=== PATIENT | female | born 1975 | race Caucasian/White ===

== ENCOUNTER 2017-06-21 13:40 | Emergency (ER) | payer BC ==
[~2017-06-21] VITALS: Ht 160 cm; Wt 126.1 kg
[~2017-06-21 13:40] MED LIST: OLME20 PO; TRI-LO-ESTARYL1 EACH PO
== END 2017-06-21 18:01 | disposition home or self-care (01) ==
LOC: ER 13:40
DX: I10 Essential (primary) hypertension (principal); Z79.899 Other long term (current) drug therapy
CPT/HCPCS: 71046; 84484; 93005; 93010

== ENCOUNTER → 2018-06-26 | Outpatient (CLI) | payer BC | END | disposition home or self-care (01) | LOC: LAB SHORT 12:36 → PLD 12:36 | DX: N92.1 Excessive and frequent menstruation with irregular cycle (principal) | CPT/HCPCS: 88305 ==

== ENCOUNTER 2018-08-14 06:00 | Inpatient (IN) | payer BC ==
[~2018-08-14] VITALS: Ht 160 cm; Wt 127.5 kg
[2018-08-14] MEDS ORDERED: iron (06:37)
--- NOTE | 2018-08-14 06:45 | NUR ---
PT ADMITTED TO [facility]. AGREES WITH PLANNED SURGERY. LUNG SOUNDS CLEAR.
--- NOTE | 2018-08-14 10:50 | NUR ---
PT ARRIVED TO ROOM 233 FROM PACU PT IS S/P WENDY PT REPORTS ABD PAIN 2/10 PT HAS AQUACEL CDI TRANVERSE KIESHA PAD WITH SCANT VAG DRAINAGE PRUETT CATH DRAINING YELLOW URINE KPAD PLACED TO ABD PT GIVEN ICE CHIPS AND CL PT DID STATE SHE HAS SOME NAUSEA ZOFRAN ALREADY GIVEN WILL CALL DR MONTAGUE
--- NOTE | 2018-08-14 14:34 | NUR ---
pt stated pain is still about 2 no nausea at this time gave pt drink to trial will order fl for dinner
--- NOTE | 2018-08-14 16:00 | NUR ---
pt wanting to try something more then cl yogurt given
--- NOTE | 2018-08-14 18:01 | NUR ---
pt eating dinner
--- NOTE | 2018-08-14 18:30 | NUR ---
pt assisted to edge of the bed to dangle slight dizziness the able to stand pt had some bleeding replaced to pad pt wanting to stand next to the bed
[2018-08-15 04:59] LABS: BASOPHILS ABSOLUTE AUTO 0.02 K/mm3 (0.00-0.23); BASOPHILS PERCENT AUTO 0 % (0-2); EOSINOPHILS PERCENT AUTO 0 % (0-6); Hematocrit 31.3 % (33.0-51.0); Hemoglobin 9.5 g/dL (11.5-16.0); IMMATURE GRAN ABSOLUTE AUTO 0.09 K/mm3 (0.00-0.10); IMMATURE GRAN PERCENT AUTO 1 % (0-1); LYMPHOCYTES ABSOLUTE AUTO 1.58 K/mm3 (0.84-5.20); LYMPHOCYTES PERCENT AUTO 11 % (21-46); MONOCYTES ABSOLUTE AUTO 1.22 K/mm3 (0.16-1.47); MONOCYTES PERCENT AUTO 8 % (4-13); Mean Corpuscular HGB 22.5 pg (26.0-34.0); Mean Corpuscular HGB Conc 30.4 g/dL (31.5-36.5); Mean Corpuscular Volume 74 fL (80-100); Mean Platelet Volume 10.8 fL (9.1-12.4); NEUTROPHILS PERCENT AUTO 81 % (41-73); Platelet Count 305 K/mm3 (150-400); RDW Coefficient Variation 18.1 % (11.7-14.2); RDW Standard Deviation 42.9 fL (35.1-46.3); Red Blood Cell Count 4.23 M/mm3 (3.80-5.20); White Blood Cell Count 15.01 K/mm3 (4.00-11.30)
--- NOTE | 2018-08-15 06:52 | NUR ---
SHIFT SUMMARY RESTED WITH EASE, PAIN WELL MANAGED WITH SHEAR GRINDER OPERATOR HELPER. HAS URINATED IN BATHROOM X1 SINCE REMOVAL. TRANSVERSE AQUACELL IN PLACE AND IS C/D/I. MODERATE BLEEDING NOTED ON KIESHA PAD. DENIES FURTHER NEEDS AT THIS TIME. SAFETY MEASUERS IN PLACE. WILL GIVE HAND OFF TO ONCOMING SHIFT USING SBAR.
[2018-08-15] MEDS ORDERED: Percocet 5-3251 EACH PO (10:07)
[2018-08-15] MEDS ORDERED: IBUP800 PO (10:07)
--- NOTE | 2018-08-15 15:23 | NUR ---
DISCHARGE PT EDUCATED ON AND RECEIVED PRINTED DC INSTRUCTIONS. PT VERB AN UNDERSTANDNG. HARD RX FOR PERCOCET AND MOTRIN GIVEN TO PT. IV DC'D. PT ABLE TO VOID SPONTANEOUSLY AND PAIN MANAGED WITH ORAL PERCOCET. YASMANI REG DIET AND PASSING GAS. PT WAITING FOR RIDE HOME. ALL BELONGINGS GATHERED BY PT.
--- NOTE | 2018-08-16 08:17 | NUR ---
08/16/18 0817 Jocelyn Aguayo VERIFICATIONS: EDIT CHART.
== END 2018-08-15 15:54 | disposition home or self-care (01) | DRG 743 ==
LOC: SURS 06:00 → PRE IP 07:30 → SURS 10:45
PROVIDERS: ADMIT Obstetrics & Gynecology
PROC: 0UT50ZZ Resection of Right Fallopian Tube, Open Approach (ICD-10-PCS; 2018-08-14)
PROC: 0UT90ZL Resection of Uterus, Supracervical, Open Approach (ICD-10-PCS; principal; 2018-08-14 07:30)
PROC: 0UT00ZZ Resection of Right Ovary, Open Approach (ICD-10-PCS; 2018-08-14 07:30)
DX: N92.1 Excessive and frequent menstruation with irregular cycle (principal); N83.201 Unspecified ovarian cyst, right side; D64.9 Anemia, unspecified
CPT/HCPCS: 36415; 85025; 86850; 86900; 86901; 88307; J0690; J1100; J1885; J2250; J2405; J2550; J2704; J2710; J3010; J7120

== ENCOUNTER 2018-08-20 14:25 | Inpatient (IN) | payer BC ==
[~2018-08-20] VITALS: Ht 162.6 cm; Wt 128.2 kg
[~2018-08-20 14:25] MED LIST changes: +IBUP800 PO; +Percocet 5-3251 EACH PO; +iron
--- NOTE | 2018-08-20 15:04 | NUR ---
PT ARRIVED TO UNIT AT APROX 1445. PT POD 6 WENDY. INCISION SITE INFLAMMED, PURULENT DRAINAGE PRESENT ON ABD PAD, DRESSING CHANGED AT THIS TIME.
[2018-08-20 15:59] LABS: BASOPHILS ABSOLUTE AUTO 0.03 K/mm3 (0.00-0.23); BASOPHILS PERCENT AUTO 0 % (0-2); EOSINOPHILS ABSOLUTE AUTO 0.38 K/mm3 (0.00-0.68); EOSINOPHILS PERCENT AUTO 4 % (0-6); Hematocrit 33.7 % (33.0-51.0); Hemoglobin 10.3 g/dL (11.5-16.0); IMMATURE GRAN PERCENT AUTO 1 % (0-1); LYMPHOCYTES ABSOLUTE AUTO 2.01 K/mm3 (0.84-5.20); LYMPHOCYTES PERCENT AUTO 21 % (21-46); MONOCYTES ABSOLUTE AUTO 0.67 K/mm3 (0.16-1.47); MONOCYTES PERCENT AUTO 7 % (4-13); Mean Corpuscular HGB 23.1 pg (26.0-34.0); Mean Corpuscular HGB Conc 30.6 g/dL (31.5-36.5); Mean Corpuscular Volume 76 fL (80-100); Mean Platelet Volume 10.4 fL (9.1-12.4); NEUTROPHILS ABSOLUTE AUTO 6.56 K/mm3 (1.96-9.15); NEUTROPHILS PERCENT AUTO 67 % (41-73); Platelet Count 342 K/mm3 (150-400); RDW Coefficient Variation 17.8 % (11.7-14.2); RDW Standard Deviation 47.8 fL (35.1-46.3); Red Blood Cell Count 4.45 M/mm3 (3.80-5.20); White Blood Cell Count 9.75 K/mm3 (4.00-11.30)
[2018-08-20 16:11] LABS: Alanine Aminotransfer (ALT/SGP 20 U/L (12-78); Albumin, Blood 3.4 g/dL (3.4-5.0); Albumin/Globulin Ratio 0.8 (0.8-1.8); Alk Phos 81 U/L (50-136); Anion Gap 4 mmol/L (6-16); Aspartate Aminotrans (AST/SGOT 17 U/L (12-37); Bilirubin, Total 0.5 mg/dL (0.1-1.0); Blood Urea Nitrogen 6 mg/dL (8-24); Bun/Creatinine Ratio 8.2 (12.0-20.0); CO2, Blood 29 mmol/L (21-32); Calcium, Blood 8.9 mg/dL (8.5-10.1); Chloride, Blood 107 mmol/L (98-108); Creatinine, Blood 0.73 mg/dL (0.40-1.00); Glomerular Filtration Rate >60 (60-); Glucose, Blood 98 mg/dL (70-99); Potassium, Blood 3.8 mmol/L (3.5-5.5); Sodium, Blood 140 mmol/L (136-145); Total Protein, Blood 7.4 g/dL (6.4-8.2)
--- NOTE | 2018-08-21 07:44 | NUR ---
SUMMARY: ADMIT DAY 2 POST-OP INFECTION BY DR. ECHOLS. VSS, AFEBRILE, ROOM AIR. VOIDING, TOLERATING REG DIET. PT REPORTS SMALL AREA ON RIGHT OF INCISION OPENED DURING BRP WITH MODERATE AMOUNT OF PURULENT DRAINAGE. ABD APPLIED TO INCISION CONTINUE IV ANTIBIOTICS AND AWAIT CULTURE RESULTS.
[2018-08-21 10:17] LABS: Vancomycin, Trough 21.1 ug/mL (5.0-10.0)
--- NOTE | 2018-08-21 18:41 | NUR ---
SUMMARY NO ACUTE CHANGES T/O SHIFT. PLACED PREVENA TO LOWER TRANSVERSE ABDOMINAL INCISION/WOUND. MEDICATED THIS EVENING PER ORDERS W/IBUPROFEN FOR 3/10 ABDOMINAL PAIN. PT INDEPENDENT IN ROOM. PLEASANT AND COOPERATIVE. CALL LIGHT IN REACH.
[2018-08-22 01:25] LABS: Vancomycin, Trough 14.1 ug/mL (5.0-10.0)
--- NOTE | 2018-08-22 07:14 | NUR ---
POSITIVE BLOOD CX: NOTIFIED BY LAB OF POSITIVE BLOOD CX-GRAM POSITIVE COCCI. CURRENT ABX ORDERS REV, DISCUSSED W/PHARMACIST. CALL PLACED THIS AM TO ANS SERVICE, DR VILLALOBOS NOTIFIED, LABS AND CURRENT ABX ORDERS REVIEWED, NO NEW ORDERS REC.
--- NOTE | 2018-08-22 07:32 | NUR ---
PT HAD NO ACUTE CHANGES T/O NIGHT; VSS. DRESSING CDI, W/SM AMT SS DRNG. NO CHANGE TO REDNESS OR RASH THIS AM. PAIN MGD W/IBUPROFEN W/REP RELIEF. BENADRYL GIVEN X1 FOR ITCHING. POSITIVE BLOOD CX REC THIS AM, OTIFIED, NO NEW ORDERS. PT YASMANI REG PO, NO C/O N/V, IS VOIDING W/O DIFIUCLTY. PT AMB INDEP IN HALLS, IS USING CALL LIGHT FOR ASSISTANCE, REP GIVEN TO DAY RN.
[2018-08-22 09:44] LABS: BASOPHILS ABSOLUTE AUTO 0.03 K/mm3 (0.00-0.23); BASOPHILS PERCENT AUTO 0 % (0-2); EOSINOPHILS PERCENT AUTO 3 % (0-6); Hematocrit 32.3 % (33.0-51.0); IMMATURE GRAN ABSOLUTE AUTO 0.12 K/mm3 (0.00-0.10); IMMATURE GRAN PERCENT AUTO 1 % (0-1); LYMPHOCYTES ABSOLUTE AUTO 1.63 K/mm3 (0.84-5.20); LYMPHOCYTES PERCENT AUTO 18 % (21-46); MONOCYTES ABSOLUTE AUTO 0.71 K/mm3 (0.16-1.47); MONOCYTES PERCENT AUTO 8 % (4-13); Mean Corpuscular HGB 23.3 pg (26.0-34.0); Mean Corpuscular Volume 75 fL (80-100); Mean Platelet Volume 10.4 fL (9.1-12.4); NEUTROPHILS ABSOLUTE AUTO 6.06 K/mm3 (1.96-9.15); NEUTROPHILS PERCENT AUTO 69 % (41-73); Platelet Count 339 K/mm3 (150-400); RDW Coefficient Variation 17.8 % (11.7-14.2); RDW Standard Deviation 47.7 fL (35.1-46.3); White Blood Cell Count 8.85 K/mm3 (4.00-11.30)
[2018-08-22 10:02] LABS: Anion Gap 5 mmol/L (6-16); Blood Urea Nitrogen 8 mg/dL (8-24); Bun/Creatinine Ratio 10.4 (12.0-20.0); CO2, Blood 26 mmol/L (21-32); Calcium, Blood 8.9 mg/dL (8.5-10.1); Chloride, Blood 109 mmol/L (98-108); Creatinine, Blood 0.77 mg/dL (0.40-1.00); Glomerular Filtration Rate >60 (60-); Glucose, Blood 108 mg/dL (70-99); Potassium, Blood 3.8 mmol/L (3.5-5.5); Sodium, Blood 140 mmol/L (136-145)
--- NOTE | 2018-08-22 16:36 | NUR ---
PT IV INFILTRATED WHILE INFUSING VANCO. DR. ECHOLS NOTIFIED. IV DC'D AND ARM ELEVATED. ROE, REGISTERED VASCULAR TECHNOLOGIST (RVT) TO START A POWERGLIDE.
--- NOTE | 2018-08-22 18:48 | NUR ---
SUMMARY: PT ADMITTED FOR POST OP INFECTION. NO ACUTE CHANGE TODAY. VSS, AFIBRILE. NO REDNESS OR DRAINAGE NOTED AT SURGICAL SITE. WOUND VAC REMOVED AND MEDIPORE DRESSING PLACED. PT TOLERATED WELL. MEDICATED FOR PAIN X1, OTHERWISE PT DENIED NEED FOR PAIN MEDS. REPEAT LABS DRAWN TODAY. PLAN IS CONTINUE IV ABX AND MONITOR BLOOD CULTURES. PT INDEPENDENT IN ROOM, NO SAFETY CONCERNS AT THIS TIME. WILL REPORT TO DECLAN LOPEZ.
--- NOTE | 2018-08-22 19:16 | NUR ---
PT OUT OF ROOM DURING THIS ROUNDING. WILL WAIT RETURN THEN ASSESS AND TX PER ORDERS
--- NOTE | 2018-08-23 06:36 | NUR ---
PT VSS T/O NIGHT. DRESSING INTACT W/MOD AMT SS SHADOWING. RASH AND REDNESS MINIMAL. PT REP PAIN MINIMAL. PT YASMANI REG PO, NO N/O N/V. IV ABX CONT PER ORDERS. PT AMB INDEP IN HALLS, YASMANI WELL. CONT TO AWAIT BLOOD CX RESULTS FOR D/C PALNNING. PT USING CALL LIGHT FOR ASSISTANCE, WILL CONT TO MONITOR UNTIL REP GIVEN TO ONCOMING RN.
[2018-08-23] MEDS ORDERED: FERSU300 PO (10:51)
[2018-08-23] MEDS ORDERED: CEPH500 PO (10:52)
[2018-08-23] MEDS ORDERED: DOXY100 PO (10:52)
--- NOTE | 2018-08-23 13:15 | NUR ---
PT DRESSING CHANGED BEFORE DC, SITE IS CDI, NO DRAINAGE OR REDNESS NOTED. SCRIPTS CALLED TO ELISA. PT GIVEN DC INSTUCTIONS, VERBALIZED UNDERSTANDING. STENT HOME WITH DC PAPERWORK, GAUZE AND MEDIPORE DRESSINGS. POWERGLIDE DC'D. PT LEFT UNIT AT 0108 WALKING WITH FAMILY.
== END 2018-08-23 13:37 | disposition home or self-care (01) | DRG 863 ==
LOC: SURS 14:25
PROVIDERS: ADMIT Family Medicine
DX: T81.41XA Infection following a procedure, superficial incisional surgical site, initial encounter (principal); L03.311 Cellulitis of abdominal wall; B95.62 Methicillin resistant Staphylococcus aureus infection as the cause of diseases classified elsewhere; I10 Essential (primary) hypertension; B96.20 Unspecified Escherichia coli [E. coli] as the cause of diseases classified elsewhere
CPT/HCPCS: 36415; 80048; 80053; 80202; 85025; 87040; 87070; 87075; 87077; 87147; 87186; 87205; 96365; 96366; 96367; G0378; J2543; J3370; J7030; J7050; Q0163

== ENCOUNTER 2018-09-11 15:38 | Day surgery (SDC) | payer BC ==
[~2018-09-11] VITALS: Ht 160 cm; Wt 126.6 kg
[~2018-09-11 15:38] MED LIST changes: +CEPH500 PO; +DOXY100 PO; +FERSU300 PO
[2018-09-11] MEDS ORDERED: AMOCLA500 PO (16:25)
[2018-09-11] MEDS ORDERED: CUBICIN500 MG IV (16:26)
[2018-09-11] MEDS ORDERED: Ceftriaxone2 G1 IV (16:26)
== END 2018-09-11 18:30 | disposition home or self-care (01) ==
LOC: ATC 15:38
DX: T81.41XA Infection following a procedure, superficial incisional surgical site, initial encounter (principal); L03.311 Cellulitis of abdominal wall; I10 Essential (primary) hypertension; Z86.14 Personal history of Methicillin resistant Staphylococcus aureus infection
CPT/HCPCS: 96365; 96367; C1751; J0696; J0878

== ENCOUNTER 2018-09-12 09:03 | Day surgery (SDC) | payer BC ==
[~2018-09-12 09:03] MED LIST changes: +AMOCLA500 PO; +CUBICIN500 MG IV; +Ceftriaxone2 G1 IV
--- NOTE | 2018-09-12 09:50 | NUR ---
PT TALKING WITH DR MONTAGUE ABOUT HER VITAL SIGNS.
== END 2018-09-12 09:42 | disposition home or self-care (01) ==
LOC: ATC 09:03
DX: T81.41XA Infection following a procedure, superficial incisional surgical site, initial encounter (principal); L03.311 Cellulitis of abdominal wall; Z88.2 Allergy status to sulfonamides; Z88.8 Allergy status to other drugs, medicaments and biological substances
CPT/HCPCS: 96365; 96368; J0696; J0878

== ENCOUNTER 2018-09-13 02:18 | Day surgery (SDC) | payer BC | END 2018-09-13 09:17 | disposition home or self-care (01) | LOC: ATC 02:18 | DX: T81.41XA Infection following a procedure, superficial incisional surgical site, initial encounter (principal); I10 Essential (primary) hypertension; Z86.73 Personal history of transient ischemic attack (TIA), and cerebral infarction without residual deficits; Z90.710 Acquired absence of both cervix and uterus | CPT/HCPCS: 96365; 96368; J0696; J0878 ==

== ENCOUNTER 2018-09-14 08:48 | Day surgery (SDC) | payer BC | END 2018-09-14 10:25 | disposition home or self-care (01) | LOC: ATC 08:48 | DX: T81.41XA Infection following a procedure, superficial incisional surgical site, initial encounter (principal); L03.311 Cellulitis of abdominal wall; I10 Essential (primary) hypertension; Z86.14 Personal history of Methicillin resistant Staphylococcus aureus infection | CPT/HCPCS: 96365; 96367; J0696; J0878 ==

== ENCOUNTER 2018-09-15 08:32 | Day surgery (SDC) | payer BC | END 2018-09-15 09:37 | disposition home or self-care (01) | LOC: ATC 08:32 | DX: T81.41XS Infection following a procedure, superficial incisional surgical site, sequela (principal); I10 Essential (primary) hypertension | CPT/HCPCS: 96365; 96368; J0696; J0878 ==

== ENCOUNTER 2018-09-16 00:07 | Day surgery (SDC) | payer BC | END 2018-09-16 09:33 | disposition home or self-care (01) | LOC: ATC 00:07 | DX: T81.41XA Infection following a procedure, superficial incisional surgical site, initial encounter (principal); I10 Essential (primary) hypertension; Z86.14 Personal history of Methicillin resistant Staphylococcus aureus infection | CPT/HCPCS: 96365; 96368; J0696; J0878 ==

== ENCOUNTER 2018-09-17 00:09 | Day surgery (SDC) | payer BC | END 2018-09-17 09:28 | disposition home or self-care (01) | LOC: ATC 00:09 | DX: T81.41XA Infection following a procedure, superficial incisional surgical site, initial encounter (principal); L03.311 Cellulitis of abdominal wall; I10 Essential (primary) hypertension; Z90.710 Acquired absence of both cervix and uterus | CPT/HCPCS: 96365; 96368; J0696; J0878 ==

== ENCOUNTER 2018-09-18 00:08 | Day surgery (SDC) | payer BC | END 2018-09-18 09:30 | disposition home or self-care (01) | LOC: ATC 00:08 | DX: T81.41XA Infection following a procedure, superficial incisional surgical site, initial encounter (principal); L03.311 Cellulitis of abdominal wall; I10 Essential (primary) hypertension | CPT/HCPCS: 96365; J0696; J0878 ==

== ENCOUNTER → 2019-05-02 | Outpatient (CLI) | payer BC | END | disposition home or self-care (01) | LOC: LAB 12:36 → LAB SHORT 12:36 | DX: R73.9 Hyperglycemia, unspecified (principal) | CPT/HCPCS: 83036 ==

== ENCOUNTER → 2022-05-10 | Outpatient (CLI) | payer OTHER ==
[2022-05-10 09:50] LABS: BASOPHILS ABSOLUTE AUTO 0.07 K/mm3 (0.00-0.23); BASOPHILS PERCENT AUTO 1 % (0-2); EOSINOPHILS ABSOLUTE AUTO 0.16 K/mm3 (0.00-0.68); EOSINOPHILS PERCENT AUTO 1 % (0-6); Hematocrit 42.1 % (33.0-51.0); Hemoglobin 14.9 g/dL (11.5-16.0); IMMATURE GRAN ABSOLUTE AUTO 0.09 K/mm3 (0.00-0.10); IMMATURE GRAN PERCENT AUTO 1 % (0-1); LYMPHOCYTES ABSOLUTE AUTO 2.15 K/mm3 (0.84-5.20); LYMPHOCYTES PERCENT AUTO 15 % (21-46); MONOCYTES ABSOLUTE AUTO 0.86 K/mm3 (0.16-1.47); MONOCYTES PERCENT AUTO 6 % (4-13); Mean Corpuscular HGB Conc 35.4 g/dL (31.5-36.5); Mean Corpuscular Volume 82 fL (80-100); Mean Platelet Volume 9.8 fL (9.1-12.4); NEUTROPHILS ABSOLUTE AUTO 11.13 K/mm3 (1.96-9.15); NEUTROPHILS PERCENT AUTO 77 % (41-73); Platelet Count 321 K/mm3 (150-400); RDW Coefficient Variation 12.2 % (11.7-14.2); RDW Standard Deviation 36.4 fL (35.1-46.3); Red Blood Cell Count 5.14 M/mm3 (3.80-5.20); White Blood Cell Count 14.46 K/mm3 (4.00-11.30)
[2022-05-10 09:59] LABS: Albumin, Blood 3.7 g/dL (3.4-5.0); Albumin/Globulin Ratio 0.9 (0.8-1.8); Bilirubin, Total 0.6 mg/dL (0.1-1.0); Bun/Creatinine Ratio 10.3 (12.0-20.0); Calcium, Blood 9.2 mg/dL (8.5-10.1); Creatinine, Blood 0.68 mg/dL (0.40-1.00); Globulin, Blood 4.1 g/dL (2.2-4.0); Potassium, Blood 3.8 mmol/L (3.5-5.5); Total Protein, Blood 7.8 g/dL (6.4-8.2)
== END | disposition home or self-care (01) ==
LOC: LAB 09:44 → LAB SHORT 09:44
PROVIDERS: Family Medicine
DX: R10.32 Left lower quadrant pain (principal)
CPT/HCPCS: 80053; 83690; 85025